=== PATIENT | female | born 2000 | race Caucasian/White ===

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

== ENCOUNTER 2022-08-07 20:13 | Emergency (ER) | payer BC, MEDICAID, SELFPAY ==
[2022-08-07 20:40] VITALS: BP 136/75; PULSE 82; RESP 16; TEMP 36.8; O2SAT 100
[2022-08-07 22:18] LABS: Basophils # 0.1 10^3/uL (0.0-0.1); Basophils % 0.6 %; Eosinophils # 0.1 10^3/uL (0.0-0.8); Eosinophils % 0.6 %; Hematocrit 41.8 % (37.0-47.0); Hemoglobin 13.8 g/dL (11.5-15.3); Lymphocytes # 2.9 10^3/uL (0.8-4.8); Lymphocytes % 36.7 %; Mean Corpuscular Hemoglobin 31.2 pg (28.0-34.0); Mean Corpuscular Volume 94.6 fl (81-99); Mean Platelet Volume 11.6 fL (7.4-10.4); Monocytes # 0.8 10^3/uL (0.2-0.9); Monocytes % 9.9 %; Neutrophils # 4.08 10^3/uL (1.8-7.7); Neutrophils % 51.8 %; Nucleated Red Blood Cells % 0 %; Platelet Count 250 10^3/cmm (130-400); Red Blood Count 4.42 10^6/uL (4.1-5.3); Red Cell Distribution Width 14.4 % (12.1-15.1); White Blood Count 7.9 10^3/uL (4.0-10.0)
[2022-08-07 22:27] LABS: HCG, Serum Qual Negative (Negative)
[2022-08-07 22:31] LABS: Alanine Aminotransferase 37 U/L (0-33); Albumin Level 4.6 g/dL (3.5-5.2); Alkaline Phosphatase 88 U/L (35-105); Anion Gap 16.6 (5-19); Aspartate Amino Transferase 26 U/L (0-32); Blood Urea Nitrogen 10 mg/dL (6-20); Calcium 9.9 mg/dL (8.5-10.5); Carbon Dioxide 25 mmol/L (22-29); Chloride 103 mmol/L (98-107); Globulin 2.9 g/dL (1.3-4.6); Glomerular Filtration Rate 126.2 mL/min (90-130); Glucose 92 mg/dL (65-115); Osmolality Calculated 291 mOsm/kg (285-295); Potassium 3.6 mmol/L (3.5-5.1); Sodium 141 mmol/L (136-145); Total Bilirubin 0.3 mg/dL (0.15-1.2); Total Protein 7.5 g/dL (6.6-8.7)
--- NOTE | 2022-08-07 23:28 | ED_ITS ---
HPI - Abdominal Pain General: Chief Complaint: Abdominal Pain Stated Complaint: right sided pain Time Seen by Provider: 08/07/22 22:30 History of Present Illness: 22-year-old female comes in today for complaints of difficulty urinating for the last 6 hours. Patient denies any fever or nausea or vomiting. Patient reports no significant pain. Patient appears nontoxic. Patient is alert and oriented. Associated Symptoms: Denies fever(s) Related Data: Date of Last Menstrual Period: 07/30/22 Review of Systems Const: Denies: fever(s) : Reports: difficulty voiding [facility] Female Reproductive History: Date of last menstrual period: 07/30/22 Physical Exam Const: COMMON NORMALS: alert HENMT: COMMON NORMALS: normocephalic HEAD & SCALP: normocephalic Neck/C-Spine: COMMON NORMALS: full ROM Resp: COMMON NORMALS: normal respiratory effort GI: COMMON NORMALS: Soft to palpation and non-tender PALPATION: Yes Soft to palpation : COMMON NORMALS: Yes no CVA tenderness BLADDER/KIDNEY EXAM: Yes no CVA tenderness Back/Pelvis: COMMON NORMALS: no CVA tenderness Extremity: COMMON NORMALS: full ROM Neuro: SENSORIUM/ORIENTATION: Yes alert Skin: COMMON NORMALS: no rashes or lesions noted GENERAL SKIN EXAM: no rashes or lesions noted Course Vital Signs: Vital signs: Vital Signs Temperature 98.3 F 08/07/22 20:40 Pulse Rate 82 08/07/22 20:40 Respiratory Rate 16 08/07/22 20:40 Blood Pressure 136/75 08/07/22 20:40 Pulse Oximetry 100 08/07/22 20:40 Oxygen Delivery Me thod 08/07/22 20:40 MDM - Abdominal Pain Medical Decision Making 22-year-old female comes in today for difficulty urinating for the last 6 hours. Patient appears nontoxic. Patient appears in no acute distress. On exam abdomen soft and nontender without palpation of the bladder. No CVA tenderness. No edema is noted in the extremity. Differential diagnosis includes urinary tract infection, dysuria, worried well. CBC and CMP were unremarkable. Urinalysis had a large amount of red blood cells and white blood cells. Recommended treatment for urinary tract infection/cystitis. Patient reported understanding of care plan and need for follow-up or return to the ER. Lab Data : 08/07/22 21:50 08/07/22 21:50 Labs/Radiology: Laboratory Results WBC 7.9 10^3/uL (4.0-10.0) 08/07/22 21:50 RBC 4.42 10^6/uL (4.1-5.3) 08/07/22 21:50 Hgb 13.8 g/dL (11.5-15.3) 08/07/22 21:50 Hct 41.8 % (37.0-47.0) 08/07/22 21:50 MCV 94.6 fl (81-99) 08/07/22 21:50 MCH 31.2 pg (28.0-34.0) 08/07/22 21:50 MCHC 33.0 g/dL (30.0-36.0) 08/07/22 21:50 RDW 14.4 % (12.1-15.1) 08/07/22 21:50 Plt Count 250 10^3/cmm (130-400) 08/07/22 21:50 MPV 11.6 fL (7.4-10.4) H 08/07/22 21:50 Neut % (Auto) 51.8 % 08/07/22 21:50 Lymph % (Auto) 36.7 % 08/07/22 21:50 Mckenzie % (Auto) 9.9 % 08/07/22 21:50 Eos % (Auto) 0.6 % 08/07/22 21:50 Baso % (Auto) 0.6 % 08/07/22 21:50 Neut # (Auto) 4.08 10^3/uL (1.8-7.7) 08/07/22 21:50 Lymph # (Auto) 2.9 10^3/uL (0.8-4.8) 08/07/22 21:50 Mckenzie # (Auto) 0.8 10^3/uL (0.2-0.9) 08/07/22 21:50 Eos # (Auto) 0.1 10^3/uL (0.0-0.8) 08/07/22 21:50 Baso # (Auto) 0.1 10^3/uL (0.0-0.1) 08/07/22 21:50 Nucleated RBC % (auto) 0 % 08/07/22 21:50 Nucleated RBCs # 0.0 /100WBC 08/07/22 21:50 Sodium 141 mmol/L (136-145) 08/07/22 21:50 Potassium 3.6 mmol/L (3.5-5.1) 08/07/22 21:50 Chloride 103 mmol/L (98-107) 08/07/22 21:50 Carbon Dioxide 25 mmol/L (22-29) 08/07/22 21:50 Anion Gap 16.6 (5-19) 08/07/22 21:50 BUN 10 mg/dL (6-20) 08/07/22 21:50 Creatinine 0.6 mg/dL (0.5-0.9) 08/07/22 21:50 GFR Calculation 126.2 mL/min (90-130) 08/07/22 21:50 Glucose 92 mg/dL (65-115) 08/07/22 21:50 Calculated Osmolality 291 mOsm/kg (285-295) 08/07/22 21:50 Calcium 9.9 mg/dL (8.5-10.5) 08/07/22 21:50 Total Bilirubin 0.3 mg/dL (0.15-1.2) 08/07/22 21:50 AST 26 U/L (0-32) 08/07/22 21:50 ALT 37 U/L (0-33) H 08/07/22 21:50 Alkaline Phosphatase 88 U/L (35-105) 08/07/22 21:50 Total Protein 7.5 g/dL (6.6-8.7) 08/07/22 21:50 Albumin 4.6 g/dL (3.5-5.2) 08/07/22 21:50 Globulin 2.9 g/dL (1.3-4.6) 08/07/22 21:50 HCG, Qual Negative (Negative) 08/07/22 23:30 Urine Color Yellow (Yellow) 08/07/22 23:30 Urine Appearance Hazy (CLEAR) A 08/07/22 23:30 Urine pH 7 (5-7) 08/07/22 23:30 Ur Specific Anthon 1.010 (1.005-1.030) 08/07/22 23:30 Urine Protein Trace (Negative) 08/07/22 23:30 Urine Glucose (UA) Norm (Normal) 08/07/22 23:30 Urine Ketones Negative (Negative) 08/07/22 23:30 Urine Blood 3+ (Negative) H 08/07/22 23:30 Urine Nitrate Negative (Negative) 08/07/22 23:30 Urine Bilirubin Neg (Negative) 08/07/22 23:30 Urine Urobilinogen Norm mg/dL (Negative) 08/07/22 23:30 Ur Leukocyte Esterase 2+ (Negative) H 08/07/22 23:30 Urine RBC Too numerous to cnt /hpf (0-2) H 08/07/22 23:30 Urine WBC Too numerous to cnt /hpf (0-5) H 08/07/22 23:30 Ur Squamous Epith Cells 0-4 /hpf (0-5) H 08/07/22 23: Triple Phos Crystals 0-4 /hpf H 08/07/22 23: Amorphous Sediment 1+ /hpf 08/07/22 23:30 Urine Bacteria 3+ /hpf (NONE) H 08/07/22 23:30 Discharge Plan Discharge Patient Disposition: Home Clinical Impression: UTI (urinary tract infection) Qualifiers: Urinary tract infection type: acute cystitis Hematuria presence: with hematuria Qualified Code(s): N30.01 - Acute cystitis with hematuria Condition: Stable Prescriptions: New cephalexin 500 mg capsule 500 mg PO BID 5 Days Qty: 10 0RF Discharge Orders: Discharge ED (Routine); Ordered 08/07/22 Ordered By: Bryan Rm Discharge Diet: Usual diet Discharge Activity: Increase activity as tolerated Patient Instructions: Urinary Tract Infection in Women (ED) Activity Restrictions/Additional Instructions: Drink plenty of water. Use acetaminophen and ibuprofen for discomfort. Follow- up with primary care in 1 week for recheck of urine. Return to ED for worsening symptoms such as inability to hold fluids down, persistent nausea and vomiting, fever greater than 100.4, or new concerns. Coding Level of Care Code ED [employer] for [employer] Fwd Exam Comprehensive
[2022-08-07 23:43] LABS: Add Urine Microscopic? YES; Bilirubin Urine Neg (Negative); Blood Urine 3+ (Negative); Glucose Urine UA Norm (Normal); HCG Qualitative Urine. Negative (Negative); Ketones Urine Negative (Negative); Leukocyte Esterase Urine 2+ (Negative); Nitrate Urine Negative (Negative); Protein Urine Trace (Negative); Urine Appearance Hazy (CLEAR); Urine Color Yellow (Yellow); Urobilinogen Urine Norm (Negative); pH Urine 7 (5-7)
[2022-08-07 23:44] LABS: Add Urine Culture? Yes; Amorphous Sediment Urine 1+ /hpf; Bacteria Urine 3+ /hpf; RBC Urine TOO NUMEROUS TO CNT /hpf (0-2); Squamous Epithelial Cell Urine 0-4 /hpf (0-5); Triple Phosphate Crystal Urine 0-4 /hpf; WBC Urine TOO NUMEROUS TO CNT /hpf (0-5)
[2022-08-08 00:13] VITALS: PULSE 70; RESP 16; O2SAT 99
[2022-08-08] MEDS: cefTRIAXone 1,000 MG in lidocaine 1% 2.1 ML 1 MG IM (00:15)
[2022-08-08 00:29] VITALS: RESP 16
== END 2022-08-08 00:30 | disposition home or self-care (01) ==
PROVIDERS: Emergency Medicine; Emergency Provider Nurse Practitioner Family
DX: N30.01 Acute cystitis with hematuria (principal)
CPT/HCPCS: 80053; 81001; 81025; 84703; 85025; 87077; 87086; 87186; 96372; 99284; J0696